=== PATIENT | male | born 1960 | race Caucasian/White ===

== ENCOUNTER 2018-01-23 17:14 | Emergency (ER) | payer MEDICAID ==
[~2018-01-23] VITALS: Ht 185.4 cm; Wt 104.3 kg
[2018-01-23 17:32] VITALS: BP 138/71
[2018-01-23] MEDS ORDERED: IBUPROFEN 800 MG TAB PO ONE (20:00)
== END 2018-01-23 20:41 | disposition home or self-care (01) ==
LOC: ER 17:14 → EDBD 17:14 → ER 20:40
DX: S13.4XXA Sprain of ligaments of cervical spine, initial encounter (principal); M19.90 Unspecified osteoarthritis, unspecified site; V49.9XXA Car occupant (driver) (passenger) injured in unspecified traffic accident, initial encounter; Y93.89 Activity, other specified; Y99.8 Other external cause status; Y92.89 Other specified places as the place of occurrence of the external cause
CPT/HCPCS: 72040